=== PATIENT | male | born 1985 | race Caucasian/White ===

== ENCOUNTER 2017-09-10 01:37 | Emergency (ER) | payer OTHER ==
[~2017-09-10] VITALS: Ht 182.9 cm; Wt 136.1 kg
[2017-09-10] MEDS ORDERED: NORCO 5-325 TA1 EACH PO (02:23)
[2017-09-10 03:10] VITALS: BP 142/72
== END 2017-09-10 03:12 | disposition home or self-care (01) ==
LOC: M.ERS 01:37
DX: M25.512 Pain in left shoulder (principal); Z88.8 Allergy status to other drugs, medicaments and biological substances